=== PATIENT | male | born 1970 | race Caucasian/White ===

== ENCOUNTER 2019-11-18 08:03 | Emergency (ER) | payer OTHER, SELFPAY ==
[2019-11-18 08:10] VITALS: BP 129/88; PULSE 66; RESP 18; TEMP 36.8; O2SAT 98
[2019-11-18] MEDS: TETANUS/DIPHTHERIA TOXOIDS ADSORB 0.5 ML VIAL (*BKC) IM (08:36)
--- NOTE | 2019-11-18 08:42 | ED.LOWEXIN ---
HPI - Extremity Injury (Lower) General Chief Complaint: Extremity Injury, Lower Stated Complaint: cut to right leg Time Seen by Provider: 11/18/19 08:19 Source: patient and RN notes reviewed Mode of arrival: ambulatory Limitations: no limitations History of Present Illness HPI Narrative: Patient presents today complaining of laceration to the right lower leg. Injury was sustained while at work this morning. States he accidentally walked into a sharp piece of aluminum. 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 Currently rates his pain 3/10. Denies numbness or tingling in the leg or foot. He has tried no [id number] interventions prior to arrival. He is unsure if the date of his last tetanus vaccine. MD complaint: leg injury Related Data Allergies Allergy/AdvReac Type Severity Reaction Status Date / Time No Known Allergies Allergy Verified 11/18/19 08:06 Review of Systems Review of Systems: Narrative: CONSTITUTIONAL: Denies body aches, fever, chills, or sweats. EYES: Denies visual changes, redness, or discharge. ENT: Denies rhinorrhea, congestion, sore throat, or otalgia. CARDIOVASCULAR: Denies chest pain, palpitations, or edema. RESPIRATORY: Denies cough or dyspnea. GASTROINTESTINAL: Denies abdominal pain, nausea, vomiting, or diarrhea. GENITOURINARY: Denies dysuria or hematuria. SKIN: Denies rash, itching. +Laceration to right lower leg MUSCULOSKELETAL: Denies back pain, joint pain, or myalgia. NEUROLOGIC: Denies headache, numbness, tingling, or weakness. PSYCH: Denies depression or anxiety. [facility] Past Medical History Medical History (Updated 11/18/19 @ 08:50 by Citlali Urbano, [facility], ) Allergic to cats Eczema Surgical History Surgical History (Updated 11/18/19 @ 08:45 by Citlali Urbano, [facility], ) History of cholecystectomy Comments At time of signature, I have reviewed and agree with nursing past medical, surgical, social and family history unless otherwise noted. Please see nursing chart for further information. There is no relevant family history pertinent to the presenting complaint Exam Narrative: Exam Narrative: GENERAL: Well-appearing, well-nourished, and in no acute distress. HEAD: Normocephalic, atraumatic. EYES: EOMI. No redness or drainage. Conjunctivae normal. ENT: Mucous membranes pink and moist. NECK: Normal AROM. CHEST: No respiratory distress. EXTREMITIES: Normal range of motion. No edema. SKIN: Warm, dry, no rash. Capillary refill normal. Normal skin turgor. 1cm full thickness stellate laceration to anterior right lower leg. Minimal active bleeding. Distal sensation intact. Capillary refill normal. Pedal pulse normal. Patient has some obvious eczema to the dorsum of his right foot. NEURO: No focal deficits. Alert and oriented x3. Gait steady. PSYCH: Normal affect. No signs of depression or anxiety. Course Vital Signs Vital signs: Vital Signs Temperature 98.2 F 11/18/19 08:10 Pulse Rate 66 11/18/19 08:10 Respiratory Rate 18 11/18/19 08:10 Blood Pressure 129/88 11/18/19 08:10 Pulse Oximetry 98 11/18/19 08:10 Temperature 98.2 F 11/18/19 08:10 Pulse Rate 66 11/18/19 08:10 Respiratory Rate 18 11/18/19 08:10 Blood Pressure 129/88 11/18/19 08:10 Pulse Oximetry 98 11/18/19 08:10 Reviewed. Pt has been instructed to follow up with his PCP regarding his elevated blood pressure today. Procedures Laceration Laceration 1: Date: 11/18/19 Time: 08:44 Site: lower extremity Side (If applicable): right Size (cm): 1 Description: stellate Depth: simple, single layer Local Anesthetic: lidocaine 1% Amount of anesthesia used (mL): 2 Pre-repair: wound explored and irrigated extensively ====== Skin Level ====== Skin layer closed with: nylon Size (cm): 5-0 Number of sutures: 3 Technique: simple, interrupted ====== Subcutaneous Layer ====== ====== Musc
== END 2019-11-18 08:50 | disposition home or self-care (01) ==
PROVIDERS: Emergency Provider Nurse Practitioner; PCP Family Medicine
DX: S81.811A Laceration without foreign body, right lower leg, initial encounter (principal); W26.8XXA Contact with other sharp object(s), not elsewhere classified, initial encounter; Z23 Encounter for immunization
CPT/HCPCS: 12001; 90471; 90714; 99202; G0463

== ENCOUNTER 2023-07-11 11:28 | Outpatient (CLI) | payer OTHER, SELFPAY ==
[2023-07-11 12:28] LABS: Influenza A QL RT-PCR Negative (Negative); Influenza B QL RT-PCR Negative (Negative); RSV RNA, RT-PCR Negative (Negative); SARS-CoV-2 RNA PCR Negative (Negative)
== END 2023-07-11 11:29 | disposition home or self-care (01) ==
LOC: ANHLAB 11:30
PROVIDERS: PCP Family Medicine; Visit Provider Physician Assistant
DX: R05.9 Cough, unspecified (principal); Z20.822 Contact with and (suspected) exposure to COVID-19
CPT/HCPCS: 87637

== ENCOUNTER 2023-07-12 05:20 | Emergency (ER) | payer OTHER, SELFPAY ==
[2023-07-12] VITALS (11 sets, daily range): BP systolic 106–162; BP diastolic 79–99; PULSE 83–115; RESP 13–20; TEMP 36.6; O2SAT 92–98
--- NOTE | ~2023-07-12 | CT_ITS ---
EXAMINATION: CTA chest PE protocol DATE: 07/12/2023 07:19 INDICATION: Right chest pain. Cough. Dyspnea. TECHNIQUE: Computed tomography angiography (CTA) of the chest was performed with 100 mL Omnipaque-350 intravenous contrast timed to evaluate the pulmonary arteries. Coronal maximum intensity projection 3D-reconstructions were created by the technologist. Automated exposure control and iterative reconst ruction technique were employed. The dose-length product was 965.97 mGy-cm. COMPARISON: CT abdomen and pelvis 04/02/2011 FINDINGS: The lungs demonstrate mild atelectasis. There is a small right pleural effusion. The heart size is normal. There is no pulmonary embolus. There are changes of cholecystectomy. There is mild th oracic spondylosis. IMPRESSION: 1. No pulmonary embolus. 2. Small right pleural effusion. Reviewed, dictated and finalized at location E. CTION CONTROL MANAGER
--- NOTE | ~2023-07-12 | XR_ITS ---
EXAMINATION: XR chest 1V portable DATE: 07/12/2023 05:50 INDICATION: Right-sided chest pain. Cough. TECHNIQUE: A single frontal view of the chest was obtained. COMPARISON: CT abdomen and pelvis 04/02/2011 FINDINGS: There is mild atelectasis in right lower lung zone. No pleural effusion or pneumothorax. Th e heart size is normal. There are prominent paracardial fat pads. IMPRESSION: 1. Mild atelectasis in right lower lung zone. Reviewed, dictated and finalized at location E. CAL SECRETARY RECEPTIONIST
--- NOTE | 2023-07-12 05:43 | ECG_ITS ---
Measurements Intervals [place] Rate: 96 P: 47 SD: 203 QRS: 15 QRSD: 80 T: 38 QT: 344 QTc: 436 Interpretive Statements SINUS RHYTHM NO PREVIOUS ECG AVAILABLE FOR COMPARISON Electronically Signed On 07-12-2023 9:18:07 ROTARY SLICING MACHINE OPERATOR by Tomás Patel M.D.
--- NOTE | 2023-07-12 05:53 | ED.GENADULT ---
HPI - General Adult General Chief complaint: Shortness of Breath/Dyspnea <Jamie Jones MD - Last Filed: 07/12/23 05:55> Stated complaint: sob <Jamie Jones MD - Last Filed: 07/12/23 05:55> Time Seen by Provider: 07/12/23 05:39 <Jamie Jones MD - Last Filed: 07/12/23 05:55> History of Present Illness HPI narrative: patient is a 52-year-old gentleman who presents emergency department chief complaint of shortness of breath and cough. Patient reports that for last several days he has had a cough it has been progressively worsening. The patient states he saw his primary care provider who did an outpatient COVID test on him that was negative. The patient reports that he was having some forceful coughing and felt something pop in the right side of his chest and since then he has had pain with inspiration. Patient states he is unable to get comfortable in any position reports that he has had a productive cough. 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 Nursing and ancillary documentation was reviewed. <Jamie Jones MD - Last Filed: 07/12/23 05:55> [facility] Past Medical History Medical History: Medical History Allergic to cats Eczema <Jamie Jones MD - Last Filed: 07/12/23 05:55> Surgical History Surgical History: Surgical History History of cholecystectomy <Jamie Jones MD - Last Filed: 07/12/23 05:55> Social History Social History: Social History Smoking status: Never smoker Alcohol intake: current <Jamie Jones MD - Last Filed: 07/12/23 05:55> Exam Narrative: GENERAL: Well-appearing, well-nourished, and in moderate acute pain /respiratorydistress. HEAD: Normocephalic, atraumatic. EYES: PERRLA and EOMI. ENT: Nares clear, no rhinorrhea or epistaxis. Mucous membranes moist. NECK: Supple. CHEST: Clear to auscultation. mild respiratory distress. HEART: Regular rate and rhythm. No murmur heard. Normal peripheral pulses. ABDOMEN: Soft, nontender, nondistended, normal active bowel sounds. EXTREMITIES: Normal range of motion. No edema. SKIN: Warm, dry, no rash. NEURO: No focal deficits. Alert and oriented x3. PSYCH: Normal mood and affect. <Jamie Jones MD - Last Filed: 07/12/23 05:55> Course Reevaluation(s) Reevaluation #1: Patient care was signed out to me by Dr. Jones. CTA showed no evidence pulmonary embolism and troponins were negative. Patient was updated on results of his labs and imaging. Patient was able to ambulate in the ED without hypoxia. Patient was encouraged of close follow-up with his primary care physician. <Esdras Borja MD - Last Filed: 07/12/23 15:00> Vital Signs Vital signs: Vital Signs Temperature 97.8 F 07/12/23 05:27 Pulse Rate 99 07/12/23 05:27 Respiratory Rate 20 07/12/23 05:27 Blood Pressure 162/87 H 07/12/23 05:27 Pulse Oximetry 98 07/12/23 05:27 Oxygen Delivery Room Air 07/12/23 05:27 Temperature 97.8 F 07/12/23 05:27 Pulse Rate 96 07/12/23 10:49 Respiratory Rate 20 07/12/23 10:49 Blood Pressure 130/84 07/12/23 10:49 Pulse Oximetry 96 07/12/23 10:49 Oxygen Delivery Room Air 07/12/23 05:36 <Jamie Jones MD - [place]
[2023-07-12] MEDS: MORPHINE SULFATE (*CRX) 4 MG/ML INJ IV PUSH (06:05)
[2023-07-12] MEDS: ONDANSETRON INJ 4 MG/2 ML VIAL IV PUSH (06:05)
[2023-07-12 06:25] LABS: Basophils Percent Auto 0.2 % (0.2-1.2); Eosinophils Percent Auto 0.4 % (0-4.4); Hemoglobin 15.8 g/dL (14.0-18.0); Immature Granulocyte Absolute 0.03 K/mm3 (0.00-0.031); Immature Granulocyte Percent A 0.3 % (0-0.5); Lymphocytes Absolute Auto 0.89 K/mm3 (0.9-3.2); Lymphocytes Percent Auto 8.6 % (18.3-44.2); Mean Corpuscular HGB Conc 32.9 g/dl (32-36); Mean Corpuscular Volume 94.3 fl (80-100); Mean Platelet Volume 9.2 fl (7.4-10.4); Monocytes Absolute Auto 0.4 K/mm3 (0.1-0.6); Neutrophils Percent Auto 86.5 % (45.5-73.1); Platelet Count Result 279 k/mm3 (150-375); Red Blood Count 5.09 M/mm3 (4.6-6.20); Red Cell Distribution Width 12.8 % (11.5-14.5); White Blood Count 10.4 K/mm3 (4.5-10.0)
[2023-07-12 06:36] LABS: INR 0.9; Prothrombin Time 12.8 Seconds (11.1-14.7)
[2023-07-12 06:37] LABS: Partial Thromboplastin Time 29.9 SECONDS (22.3-36.8)
[2023-07-12 06:38] LABS: Lactic Acid Reflex 2.8 mmol/L (0.7-2.0)
[2023-07-12 06:42] LABS: Alanine Aminotransferase 49 U/L (6-50); Albumin Level 4.4 g/dL (3.5-5.1); Alkaline Phosphatase 73 U/L (38-126); Anion Gap 10 mmol/L (8-16); Aspartate Amino Transferase 71 U/L (17-59); Bilirubin,Total 1.4 mg/dL (0.2-1.3); Blood Urea Nitrogen 10 mg/dL (9-20); Calcium 8.7 mg/dL (8.4-10.2); Carbon Dioxide 24 mmol/L (22-30); Chloride 95 mmol/L (98-107); Estimated CRCL calculation 118 ml/min; Estimated Glomerular Filt Rate > 60; Glucose 124 mg/dL (65-110); Potassium 3.9 mmol/L (3.4-5.0); Sodium 129 mmol/L (137-145)
[2023-07-12 06:51] LABS: NT Pro B Type Natriuretic Pept < 20 pg/mL (19.9-100); Troponin I < 0.012 ng/mL (0.000-0.034)
[2023-07-12 06:56] LABS: Procalcitonin 0.1 ng/mL
[2023-07-12 07:03] LABS: Influenza A QL RT-PCR Negative (Negative); Influenza B QL RT-PCR Negative (Negative); RSV RNA, RT-PCR Negative (Negative); SARS-CoV-2 RNA PCR Negative (Negative)
[2023-07-12 08:00] LABS: Appearance Urine Clear (Clear); Bilirubin Urine Negative (Negative); Blood Urine Negative (Negative); Color Urine Yellow (Yellow); Glucose Urine UA Negative (Negative); Ketones Urine Negative (Negative); Leukocyte Esterase Ur Negative LEU/UL (Negative); Nitrate Urine Negative (Negative); Protein Urine Negative (Negative); Urobilinogen Urine 0.2 mg/dL (<2.0)
[2023-07-12] MEDS: HYDROmorphone HCL INJ (*CRX) 1 MG/ML SYR IV PUSH (08:20)
[2023-07-12 08:33] LABS: Add Urine Microscopic? NO
--- NOTE | 2023-07-12 09:15 | ECG_ITS ---
Measurements Intervals [place] Rate: 94 P: 54 [place]: 159 QRS: 17 QRSD: 97 T: 41 QT: 348 QTc: 437 Interpretive Statements SINUS RHYTHM COMPARED TO ECG 07/12/2023 08:23:31 NO SIGNIFICANT CHANGES Electronically Signed On 07-12-2023 9:18:52 GLAZE SUPERVISOR by Tomás Patel M.D.
[2023-07-12 09:23] LABS: Reflex Lactic Acid Yes or No Add Lactic
[2023-07-12 09:47] LABS: Troponin I < 0.012 ng/mL (0.000-0.034)
[2023-07-12 10:18] LABS: Lactic Acid 1.3 mmol/L (0.7-2.0)
== END 2023-07-12 11:10 | disposition home or self-care (01) ==
PROVIDERS: Emergency Medicine; Emergency Provider Emergency Medicine; PCP Family Medicine
DX: R07.81 Pleurodynia (principal); Z90.49 Acquired absence of other specified parts of digestive tract; Z20.822 Contact with and (suspected) exposure to COVID-19
CPT/HCPCS: 36415; 71045; 71275; 80053; 81003; 83605; 83880; 84145; 84484; 85025; 85610; 85730; 87040; 87637; 93005; 96374; 96375; 99284; J1170; J2270; J2405; Q9967